=== PATIENT | female | born 1995 | race Caucasian/White ===

== ENCOUNTER 2024-01-31 15:49 | Emergency (ER) | payer OTHER ==
[~2024-01-31] VITALS: Ht 167.6 cm; Wt 55.8 kg
[2024-01-31] MEDS ORDERED: LIDOCAINE 1% INJ 50 ML MDV IJ ONE (16:05)
[2024-01-31] MEDS: LIDOCAINE 1% INJ 50 ML MDV IJ ONE (16:08)
[2024-01-31] MEDS: oxyCODONE/APAP (5/325 MG) 1 UDTAB TABLET PO ONE (17:00)
[2024-01-31] MEDS ORDERED: oxyCODONE/APAP (5/325 MG) 1 UDTAB TABLET ONE (17:01)
[2024-01-31] MEDS: BACI/NEOM/POLY B OINT PKT 1 UDPKT PACKET TP ONE (17:04)
[2024-01-31 18:02] LABS: PREGNANCY TEST URINE QUAL NEGATIVE (NEGATIVE)
[2024-01-31] MEDS ORDERED: DOXY-326 PO (18:27)
[2024-01-31] MEDS ORDERED: METR-147 PO (18:27)
[2024-01-31] MEDS ORDERED: DOXYCYCLINE HYCLATE (100 MG) 100 MG TABLET ONE (18:34)
[2024-01-31] MEDS ORDERED: METRONIDAZOLE 500 MG TABLET ONE (18:35)
[2024-01-31] MEDS: METRONIDAZOLE 500 MG TABLET PO ONE (18:38)
[2024-01-31] MEDS: DOXYCYCLINE HYCLATE (100 MG) 100 MG TABLET PO ONE (18:38)
[2024-01-31 18:41] VITALS: BP 118/74; TEMP 98; O2SAT 99
== END 2024-01-31 18:41 | disposition home or self-care (01) ==
LOC: ER 16:04
DX: S61.211A Laceration without foreign body of left index finger without damage to nail, initial encounter (principal); R10.2 Pelvic and perineal pain; Z79.899 Other long term (current) drug therapy; Z88.0 Allergy status to penicillin; W54.0XXA Bitten by dog, initial encounter; Y93.89 Activity, other specified; Y92.89 Other specified places as the place of occurrence of the external cause; Y99.8 Other external cause status
CPT/HCPCS: 29130; 73130; 84703; 99284; A6403; J3490